=== PATIENT | female | born 1965 | race Caucasian/White ===

== ENCOUNTER 2024-03-18 15:17 | Emergency (ER) | payer MEDICAID, SELFPAY ==
[2024-03-18 15:18] VITALS: BMI 32.8
--- NOTE | 2024-03-18 15:36 | EKG_ITS ---
[facility] Test Date: 2024-03-18 Pat Name: VIC GARCIA Department: Room: - Gender: Female New Patient Escort: : 1965 Requested By: ED Temporary Provider Order Number: [id number] Reading MD: ED Temporary Provider Measurements Intervals [place] Rate: 105 P: 59 DE: 168 QRS: -32 QRSD: 76 T: 66 QT: 327 QTc: 433 Interpretive Statements SINUS TACHYCARDIA MARKED LEFT AXIS DEVIATION [QRS AXIS < -30] LOW QRS VOLTAGE IN PRECORDIAL LEADS [QRS DEFLECTION < 1.0 mV IN CHEST LEADS] POSSIBLE ANTERIOR MYOCARDIAL INFARCTION , PROBABLY OLD [30 ms Q WAVE IN V3/V4, OR R < 0.2 mV IN V4] Compared to ECG 07/31/2022 12:08:12 Left-axis deviation now present Low QRS voltage now present Myocardial infarct finding now present Sinus rhythm no longer present /store/S0/[id number].pdf
[2024-03-18 15:46] VITALS: BP 161/85; PULSE 116; RESP 22; TEMP 36.8; O2SAT 100
--- NOTE | 2024-03-18 18:17 | PD.EDRME ---
Rapid Medical Screening Exam RME Arrival date/time: 03/18/24 15:17 58 year old female present to ED for c/o back/chest pain I have greeted and performed a focused initial assessment of this patient. A comprehensive ED assessment and evaluation of the patient, analysis of all test results, and completion of the medical decision making process will be conducted by additional ED providers. Chief Complaint: Back Pain/Injury Vital signs: Vital Signs Temperature 98.3 F 03/18/24 15:46 Pulse Rate 116 H 03/18/24 15:46 Respiratory Rate 22 H 03/18/24 15:46 Blood Pressure 161/85 H 03/18/24 15:46 Pulse Oximetry (%) 100 03/18/24 15:46 Oxygen Delivery Method Room Air 03/18/24 15:46
--- NOTE | 2024-03-18 18:18 | XR_ITS ---
Examination: PA lateral chest 2 views Technique: Upright PA lateral chest 2 views Exam date and time: March 18, 2024 1849 hrs. Indications: Chest pain back pain beginning 2 days ago. Findings: Mild prominence left ventricle No pneumonia or pulmonary edema Increased AP dimension chest Orthopedic screw right scapula Impression: No active disease
[2024-03-18 18:47] LABS: Basophils # (Auto) 0.1 Thou/mm3 (0.0-0.2); Basophils % (Auto) 1 % (0-2.5); Eosinophils # (Auto) 0.3 Thou/mm3 (0.0-0.5); Eosinophils % (Auto) 3 % (0-10); Hematocrit 40.5 % (36.0-46.0); Hemoglobin 13.2 g/dL (12.0-16.0); Immature Granulocytes % (Auto) 0 % (0-0); Immature Granulocytes Auto 0.04 Thou/mm3 (0.00-0.00); Lymphocytes # (Auto) 3.5 Thou/mm3 (1.0-4.8); Lymphocytes % (Auto) 32 % (10-50); Mean Corpuscular HGB Conc 32.6 g/dl (31.0-37.0); Mean Corpuscular Hemoglobin 28.9 pg (25.0-35.0); Mean Corpuscular Volume 89 fL (80-100); Monocytes # (Auto) 0.6 Thou/mm3 (0.0-0.8); Monocytes % (Auto) 6 % (0-12); Neutrophils # (Auto) 6.4 Thou/mm3 (1.8-7.7); Neutrophils % (Auto) 59 % (37-80); Nucleated Red Blood Cell % 0 /100 WBC (0); Platelet Count 273 Thou/mm3 (140-440); RDW Standard Deviation 41.9 fL (36.4-46.3); Red Blood Count 4.56 Miln/mm3 (4.00-5.20)
[2024-03-18 19:09] LABS: D-Dimer 752 ng/mL (<600)
[2024-03-18 19:13] LABS: Alanine Aminotransferase 19 U/L (10-49); Albumin, Serum 4.7 gm/dL (3.5-5.0); Albumin/Globulin Ratio 1.6 (1.2-2.2); Alkaline Phosphatase 124 U/L (46-116); Anion Gap 8 (7-16); BUN/Creatinine Ratio 17 Ratio (12-20); Bilirubin,Total 0.5 mg/dL (0.3-1.2); Blood Urea Nitrogen 19 mg/dL (9-23); Calcium 10.2 mg/dL (8.3-10.6); Calcium (Corrected) 10.2 mg/dL (8.5-10.1); Carbon Dioxide 28.1 mMol/L (20.0-31.0); Chloride 101 mMol/L (98-107); Creatinine (Component) 1.1 mg/dL (0.6-1.3); Estimated Creatinine Clearance 56.5 mL/min (>60); Glucose 155 mg/dL (74-106); Lipase 54 U/L (12-53); Osmolality,Calculated 279 (275-295); Potassium 4.2 mMol/L (3.4-5.1); Sodium 137 mMol/L (136-145); Total Protein 7.7 gm/dL (5.7-8.2); Troponin I < 0.002 ng/mL (0.0-0.045); eGFR 58 See Note
[2024-03-18 19:21] LABS: Aspartate Amino Transferase 14 U/L (0-34)
[2024-03-18 19:53] VITALS: BP 156/86; PULSE 88; RESP 18; TEMP 36.6; O2SAT 96
--- NOTE | 2024-03-18 21:23 | XR_ITS ---
Examination: CTA chest with intravenous contrast 2-D reconstructions 3-D reconstructions, vascular Date and time of exam: March 18, 2024 1127 hrs. Indications: Back pain chest pain shortness of breath elevated d-dimer today CTDI: vol (mGy) 13.3 DLP: (mGycm) 519 Technique: Multiple axial sections of the thorax have been obtained. 3 mm slice thickness, from below the hemidiaphragms to above the apices of the lungs. Mediastinal and lung density settings have been obtained. 2-D sagittal and coronal reconstructions. 3-D angiographic renderings, 3-D volume renderings, 3D post processing, vascular maximum intensity projections obtained. Contrast administered is 100 cc Isovue-370. Low dose protocols were performed. One or more of the following dose reduction techniques were used; automated exposure control, adjustment of the mA and/or KV according to patient size, use of iterative reconstruction technique. Findings: No thoracic aortic aneurysmal dilatation Pulmonary artery segments are not enlarged No pulmonary artery emboli No paratracheal tracheobronchial or bronchopulmonary adenopathy No pneumonia or pulmonary edema or pleural disease Minor atelectasis left lower lobe No focal liver or splenic lesion Absent gallbladder No pancreatic mass No hydronephrosis Impression: Negative for pulmonary artery emboli
[2024-03-18 22:45] VITALS: BP 152/123; PULSE 88; RESP 14; O2SAT 99
[2024-03-19 00:16] VITALS: BP 133/84; PULSE 85; RESP 15; TEMP 36.6; O2SAT 99
[2024-03-19 01:20] VITALS: BP 122/70; PULSE 84; RESP 17; O2SAT 98
--- NOTE | 2024-03-19 02:43 | EDNOTE_ITS ---
ED Back Injury Pain RME/HPI General Chief Complaint: Back Pain/Injury Stated Complaint: BACK PAIN RADITING TO SHOULDER AND CHEST Time Seen by Provider: 03/19/24 02:40 Source: patient and family Arrival date/time: 03/18/24 15:17 Mode of arrival: ambulatory Limitations: other RME / HPI RME / HPI Narrative: 03/18/24 15:17 58 year old female present to ED for c/o back/chest pain I have greeted and performed a focused initial assessment of this patient. A comprehensive ED assessment and evaluation of the patient, analysis of all test results, and completion of the medical decision making process will be conducted by additional ED providers. --- DR. FRYE MAIN ED EVALUATION: 58-year-old female who presents to the emergency department via private auto for complaints of back pain radiating to her shoulder and chest. She notes onset began about 30 hours ago. She has taken Tylenol and [place] for the pain without relief. Related Data Home Medications ?Medication ?Instructions ?Recorded ?Confirmed atorvastatin 80 mg tablet 80 mg PO QDAY 10/07/23 10/07/23 baclofen 20 mg tablet 20 mg PO BID PRN Muscle Spasm 10/07/23 10/07/23 empagliflozin 25 mg tablet 25 mg PO QAM 10/07/23 10/07/23 (Jardiance) ergocalciferol (vitamin D2) 1,250 1,250 mcg PO QWEEK 10/07/23 10/07/23 mcg (50,000 unit) capsule (Vitamin D2) hydroxyzine HCl 10 mg tablet 10 mg PO HS 10/07/23 10/07/23 insulin glargine 100 unit/mL (3 40 unit subcut QAM 10/07/23 10/07/23 mL) subcutaneous pen (Basaglar KwikPen U-100 Insulin) lisinopril 10 mg tablet 10 mg PO QDAY 10/07/23 10/07/23 nortriptyline 10 mg capsule 10 mg PO HS 10/07/23 10/07/23 sitagliptin phosphate 50 1 tab PO BID 10/07/23 10/07/23 mg-metformin 1,000 mg tablet (Janumet) vitamin B complex-vitamin C-folic 1 tab PO QDAY 10/07/23 10/07/23 acid 0.8 mg tablet (Seema-Erasmo) Allergies Allergy/AdvReac Type Severity Reaction Status Date / Time No Known Allergies Allergy Verified 03/18/24 15:17 Review of Systems Review of Systems Systems Reviewed: All systems reviewed, normal except as documented Past Medical History Past Medical History NEUROLOGIC: Negative Neurological Disorders or Seizures CARDIAC: Positive Hypercholesterolemia and Hypertension; Negative Cardiac Disorders or Congestive Heart Failure RESPIRATORY: Positive Bronchitis; Negative Chronic Obstructive Pulmonary Disease (COPD) or Asthma GASTROINTESTINAL: Positive Gastrointestinal Disorders (fatty liver) and Obesity; Negative Hepatitis GENITOURINARY: Negative Genitourinary Disorders or Renal Disease REPRODUCTIVE: Positive Previous Pregnancies MUSCULOSKELETAL: Positive Musculoskeletal Disorders, Arthritis and Carpal Tunnel Syndrome (bilateral, trigger finger release) ENT: Positive Cataracts (right) ENDOCRINE: Positive Endocrine Disorders and Diabetes Mellitus Type 2; Negative Diabetes Mellitus Type 1 HEMATOLOGIC: Negative Blood Disorders or Sickle Cell Disease PSYCHO/SOCIAL: Positive Depression OTHER HISTORY: Positive Hospitalization (surgery, infection), Shingles and Chicken Pox; Negative Autoimmune Disease, Blood Transfusions, Anesthesia Reactions or Cancer Family History FAMILY HISTORY: Positive Family Cardiac Disorders, Family Cancer and Family Surgery; Negative Family Psychiatric Problems, Family Respiratory Disorders, Family Gastrointestinal Problems or Family Anesthesia Reaction Surgical History SURGICAL: Negative Cardiac Surgery or Ear Surgery OTHER SURGICAL HX: Appendectomy, cholecystectomy, bilateral carpal tunnel release, right shoulder surgery and eye surgery Social History SMOKING STATUS: Never smoker SECOND HAND EXPOSURE: No SUBSTANCE USE: does not use ED Exam Narrative Physical exam: There is a 2x2cm well-circumscribed mass minimally tender area on the anterior aspect to left side of axillary. No overlying erythema. Mobile. General Limitations: Present other General appearance: Present alert and in no apparent distress Head Head exam: Present atraumatic, normocephalic and normal inspection Eye Eye exam: Present normal appearance, PERRL and EOMI ENT ENT exam: Present normal exam, normal oropharynx, TM's normal bilaterally and normal external ear exam Neck Neck exam: Present normal inspection and full ROM Chest Chest inspection: Present normal inspection and symmetric chest wall rise Respiratory Respiratory exam: Present normal lung sounds bilaterally Cardiovascular Cardiovascular exam: Present regular rate, normal rhythm and normal heart sounds Abdominal Exam Abdominal exam: Present normal bowel sounds Extremities Exam Extremities exam: Present normal inspection and full ROM Back Exam Back exam: Present normal inspection and full ROM Neurological Exam Neurological exam: Present alert, oriented X3 and CN II-XII intact Psychiatric Psychiatric exam: Present normal affect and normal mood; Absent depressed Skin Skin exam: Present warm, dry, intact and normal color Course Course Course Narrative: CXR is ordered to aid in determining etiology of chest pain. Quality Measures none Orders Category Date Time Status CT Screening NOW Care 03/18/24 21:23 Completed EKG (ED ONLY) *Do not use* NOW Care 03/18/24 15:[address] angio chest Stat Exams 03/18/24 21:23 Completed EKG (ED Only) Stat Exams 03/18/24 15:36 Draft XR chest 2V Stat Exams 03/18/24 18:18 Completed CBC Stat Lab 03/18/24 18:30 Completed CMP [Comprehensive Metabolic Panel] Stat Lab 03/18/24 18:30 Completed D-Dimer Stat Lab 03/18/24 18:30 Completed Lipase Stat Lab 03/18/24 18:30 Completed Troponin I Stat Lab 03/18/24 18:30 Completed Ketorolac Inj [Toradol Inj] Med 03/19/24 02:50 Discontinued 30 mg IM X1 ONE Vital Signs Vital signs: Vital Signs Temperature 98.3 F 03/18/24 15:46 Pulse Rate 116 H 03/18/24 15:46 Respiratory Rate 22 H 03/18/24 15:46 Blood Pressure 161/85 H 03/18/24 15:46 Pulse Oximetry (%) 100 03/18/24 15:46 Oxygen Delivery Method Room Air 03/18/24 15:46 Back Pain / Injury MDM Narrative MDM Narrative:: ? Scribe Attestation: ILouie am scribing for and in the presence of Dr. Banks. Provider Notation: Although this document has been carefully reviewed, there may still be some phonetic and other typographical errors. These errors are purely grammatical due to imperfections in the software program and should not be construed in any way to compromise the substance of the patient's medical care d uring this visit. Patient data External records reviewed:: [facility] previous records Clinical information provided by:: patient Social determinants that could affect healthcare access:: none Patient has the following chronic illnesses:: HLD, HTN, bronchitis, fatty liver, arthritis, carpal tunnel syndrome, right cataract, DM2, depression, peripheral neuropathy How is presenting disease/condition affected by chronic disease/condition?: uneffected by Evaluation data The following diagnostics were reviewed and interpreted by me:: lab results, radiology exam(s) and EKG tracing(s) Lab and/or radiology exams considered but not ordered:: None Interpretation Summary: I personally reviewed the radiology data and agree with the radiologist's interpretation. Examination: PA lateral chest 2 views Exam date and time: March 18, 2024 1849 hrs. Indications: Chest pain back pain beginning 2 days ago. Findings: Mild prominence left ventricle No pneumonia or pulmonary edema Increased AP dimension chest Orthopedic screw right scapula Impression: No active disease Dictated By: Ken Serna MD Examination: CTA chest with intravenous contrast Date and time of exam: March 18, 2024 1127 hrs. Indications: Back pain chest pain shortness of breath elevated d-dimer today Findings: No thoracic aortic aneurysmal dilatation Pulmonary artery segments are not enlarged No pulmonary artery emboli No paratracheal tracheobronchial or bronchopulmonary adenopathy No pneumonia or pulmonary edema or pleural disease Minor atelectasis left lower lobe No focal liver or splenic lesion Absent gallbladder No pancreatic mass No hydronephrosis Impression: Negative for pulmonary artery emboli Dictated By: Ken Serna MD Medications / Prescriptions Medications or Prescriptions considered but not ordered:: None Medication administrations:: Medication Administration History Discontinued Medications Ketorolac Tromethamine (Ketorolac Inj 60 Mg/2 Ml Vial) 30 mg IM X1 ONE Stop: 03/19/24 02:51 Last Admin: 03/19/24 02:56 Dose: 30 mg Documented By: GB As above, if any Consultations Consultation(s) initiated? (list below): No Diagnosis Differential diagnosis back pain/injury: other (Breast cancer, musculoskeletal, lipoma, soft tissue swelling, PE) Most likely diagnosis given after review of the tests above:: See clinical impression below Admission Indicated Admission indicated?: not indicated Admission Request Was there a request for admission?: No Disposition Plan Disposition Plan: Discharge Discharge Attestation Discharge Attestation: The patient and all family members were given an opportunity to ask questions and understood the discharge instructions. Discharge instructions specifically effects, indications for sooner follow up or return to the emergency department, and the expected course of current diagnosis. Patient condition: Stable Critical Care Time Critical Care Time Critical Care Time: Yes Total Critical Care Time (min.): 60 Attestation: The high probability of sudden, clinically significant deterioration in the patient?s condition required the highest level of my preparedness to intervene urgently. The services I provided to this patient were to treat and/or prevent clinically significant deterioration. Services included the following: chart data review, reviewing nursing notes and/or old charts, documentation time, edi consultant collaboration regarding findings and treatment options, medication orders and management, direct patient care, vital sign assessments and ordering, interpreting and reviewing diagnostic studies and lab tests. Aggregate critical care time includes only time during which I was engaged in wo rk directly related to the patient?s care, as described above, whether at bedside or elsewhere in the Emergency Department. It did not include time spent performing other reported procedures or the services of residents, students, nurses or physician assistants. Discharge Plan Plan Patient Disposition: HOME (Self Care) Patient condition on transfer: Stable Prescriptions/Referrals Prescriptions/Med Rec: No Action atorvastatin 80 mg Tablet 80 mg PO QDAY baclofen 20 mg Tablet 20 mg PO BID PRN (Reason: Muscle Spasm) nortriptyline 10 mg Capsule 10 mg PO HS lisinopril 10 mg Tablet 10 mg PO QDAY Seema-Erasmo 0.8 mg Tablet 1 tab PO QDAY ergocalciferol (vitamin D2) [Vitamin D2] 1,250 mcg (50,000 unit) Capsule 1,250 mcg PO QWEEK hydroxyzine HCl 10 mg Tablet 10 mg PO HS Janumet 50-1,000 mg Tablet 1 tab PO BID insulin glargine [Basaglar KwikPen U-100 Insulin] 100 unit/mL (3 mL) Insulin Pen 40 unit SUBCUT QAM Jardiance 25 mg Tablet 25 mg PO QAM Referrals: Enrico Buckner MD [Primary Care Provider] - In 1 week Problem List Clinical Impression: Muscle pain Patient/Caregiver Discharge Instructions Education Materials: Measuring Your Pain Additional Instructions: Please follow through in getting your mammogram and follow-up with your primary care physician as needed. Today you do not have cancer or tumor or any life- threatening abnormality. You can take [id number] Tylenol 650 mg 3 times a day as needed for the next 2 to 3 days. Return for worsening symptoms, or any other concerns. Print Language: Citizen Of [place] Stand Alone Forms: Marry Award Info., Patient Portal Info Letter
--- NOTE | 2024-03-19 02:49 | PC.NURSE ---
MD Greer at bedside.
[2024-03-19] MEDS: KETOROLAC INJ 60 MG/2 ML VIAL 30 MG IM (02:56)
[2024-03-19 03:16] VITALS: PULSE 89; RESP 18; O2SAT 99
== END 2024-03-19 03:17 | disposition home or self-care (01) ==
PROVIDERS: Physician Assistant; Emergency Provider Emergency Medicine; PCP Family Medicine
DX: M54.9 Dorsalgia, unspecified (principal); R07.9 Chest pain, unspecified
CPT/HCPCS: 36415; 71046; 71275; 80053; 83690; 84484; 85025; 85379; 93005; 96372; 99285; A4649; J1885; Q9967

== ENCOUNTER → 2024-03-30 | Outpatient (CLI) | payer MEDICAID, SELFPAY ==
--- NOTE | 2024-03-30 11:15 | XR_ITS ---
Examination: Breast ultrasound, unilateral, left complete Date and time of exam: March 30, 2024 at 1059 hours INDICATIONS: Palpable lump in the left axilla on examination by provider 6 months ago Technique: Real-time page scale ultrasonographic imaging performed left breast including all 4 quadrants as well as nipple retroareolar and axillary region. Findings: No cystic or solid mass Hyperechoic mass in the left axilla 4.1 x 1.6 x 3.5 cm, probably benign lipoma IMPRESSION: BI-RADS Category 3: Probably benign findings One additional 6 month left breast axillary sonography follow-up is needed to document stability of left axillary mass described above
--- NOTE | 2024-03-30 11:45 | XR_ITS ---
Examination: Diagnostic digital mammography, unilateral, left Computer aided detection 3-D breast Tomosynthesis, unilateral Date and time of exam: March 30, 2024 at 1119 hours INDICATIONS: Patient states palpable lump in the left axilla noticed beginning 6 months ago Technique: Nonmagnified MLO, CC views of the LEFT breast have been obtained, reconstructed from 3-D Tomosynthesis images. R2 computer aided detection program utilized for evaluation of suspicious masses and/or abnormal calcifications. 3-D Tomosynthesis images obtained. Findings: Scattered areas of fibroglandular density Benign calcifications. No suspicious masses Impression: BI-RADS category 2: Benign findings Recommend 6 month bilateral mammography follow-up Please see the left breast sonogram report today with recommendation 6 month follow-up left breast sonography
== END | disposition home or self-care (01) ==
PROVIDERS: Referring Provider Internal Medicine; Visit Provider Internal Medicine
DX: R92.322 Mammographic fibroglandular density, left breast (principal); R92.1 Mammographic calcification found on diagnostic imaging of breast; N63.32 Unspecified lump in axillary tail of the left breast
CPT/HCPCS: 76641; 77061; 77065; G0279

== ENCOUNTER → 2024-07-31 | Outpatient (CLI) | payer MEDICAID, SELFPAY ==
--- NOTE | 2024-07-31 14:53 | XR_ITS ---
Examination: AP bilateral knees single view TECHNIQUE: AP standing bilateral knee single view Date and time: July 31, 2024 1458 hours INDICATIONS: Bilateral knee pain beginning one year ago. FINDINGS: Moderate osteopenia. Moderate narrowing medial joint spaces bilaterally No fracture or dislocation IMPRESSION: Moderate narrowing medial joint spaces
== END | disposition home or self-care (01) ==
PROVIDERS: PCP Internal Medicine; Referring Provider Internal Medicine; Visit Provider Internal Medicine
DX: M25.862 Other specified joint disorders, left knee (principal); M25.861 Other specified joint disorders, right knee
CPT/HCPCS: 73565

== ENCOUNTER 2024-11-11 | Emergency (ER) | payer MEDICAID, SELFPAY ==
[2024-11-11 00:01] VITALS: BMI 32.8
[2024-11-11 00:14] VITALS: BP 147/87; PULSE 80; RESP 18; TEMP 36.6; O2SAT 99
--- NOTE | 2024-11-11 00:57 | PD.EDWOUND ---
ED Wound/Laceration-RME/HPI General Chief Complaint: Wound/Laceration Stated Complaint: CUT ON LEFT FINGER Time Seen by Provider: 11/11/24 00:56 Arrival date/time: 11/11/24 00:00 58F with history of DM and HTN presents to ED with L index finger lac after she accidentally cut herself with an aluminum can trying to kill a spider. Patient has not had a tetanus shot in the past 5 years. Related Data Home Medications ?Medication ?Instructions ?Recorded ?Confirmed atorvastatin 80 mg tablet 80 mg PO QDAY 10/07/23 10/07/23 baclofen 20 mg tablet 20 mg PO BID PRN Muscle Spasm 10/07/23 10/07/23 empagliflozin 25 mg tablet 25 mg PO QAM 10/07/23 10/07/23 (Jardiance) ergocalciferol (vitamin D2) 1,250 1,250 mcg PO QWEEK 10/07/23 10/07/23 mcg (50,000 unit) capsule (Vitamin D2) hydroxyzine HCl 10 mg tablet 10 mg PO HS 10/07/23 10/07/23 insulin glargine 100 unit/mL (3 40 unit subcut QAM 10/07/23 10/07/23 mL) subcutaneous pen (Basaglar KwikPen U-100 Insulin) lisinopril 10 mg tablet 10 mg PO QDAY 10/07/23 10/07/23 nortriptyline 10 mg capsule 10 mg PO HS 10/07/23 10/07/23 sitagliptin phosphate 50 1 tab PO BID 10/07/23 10/07/23 mg-metformin 1,000 mg tablet (Janumet) vitamin B complex-vitamin C-folic 1 tab PO QDAY 10/07/23 10/07/23 acid 0.8 mg tablet (Seema-Erasmo) Allergies Allergy/AdvReac Type Severity Reaction Status Date / Time No Known Allergies Allergy Verified 03/18/24 15:17 Review of Systems Review of Systems Systems Reviewed: All systems reviewed, normal except as documented Constitutional Constitutional: Reports system reviewed and no additional complaints, except as documented, Denies fever(s) and Denies headache(s) ENT Ears, Nose, Mouth, and Throat: Denies disequilibrium and Denies headache(s) Cardiovascular Cardiovascular: Reports system reviewed and no additional complaints, except as documented, Denies chest pain and Denies dyspnea Respiratory Respiratory: Reports system reviewed and no additional complaints, except as documented, Denies cough and Denies dyspnea Gastrointestinal Gastrointestinal: Reports system reviewed and no additional complaints, except as documented, Denies abdominal pain, Denies nausea and Denies vomiting Integumentary/Breasts Skin/Breast: Reports as per HPI and Reports skin pain Neurologic Neurologic: Reports system reviewed and no additional complaints, except as documented, Denies confusion, Denies disequilibrium and Denies headache(s) Psychiatric Psychiatric: Denies confusion Past Medical History Past Medical History NEUROLOGIC: Negative Neurological Disorders or Seizures CARDIAC: Positive Hypercholesterolemia and Hypertension; Negative Cardiac Disorders or Congestive Heart Failure RESPIRATORY: Positive Bronchitis; Negative Chronic Obstructive Pulmonary Disease (COPD) or Asthma GASTROINTESTINAL: Positive Gastrointestinal Disorders (fatty liver) and Obesity; Negative Hepatitis GENITOURINARY: Negative Genitourinary Disorders or Renal Disease REPRODUCTIVE: Positive Previous Pregnancies MUSCULOSKELETAL: Positive Musculoskeletal Disorders, Arthritis and Carpal Tunnel Syndrome (bilateral, trigger finger release) ENT: Positive Cataracts (right) ENDOCRINE: Positive Endocrine Disorders and Diabetes Mellitus Type 2; Negative Diabetes Mellitus Type 1 HEMATOLOGIC: Negative Blood Disorders or Sickle Cell Disease PSYCHO/SOCIAL: Positive Depression OTHER HISTORY: Positive Hospitalization (surgery, infection), Shingles and Chicken Pox; Negative Autoimmune Disease, Blood Transfusions, Anesthesia Reactions or Cancer Family History FAMILY HISTORY: Positive Family Cardiac Disorders, Family Cancer and Family Surgery; Negative Family Psychiatric Problems, Family Respiratory Disorders, Family Gastrointestinal Problems or Family Anesthesia Reaction Surgical History SURGICAL: Negative Cardiac Surgery or Ear Surgery Social History SMOKING STATUS: Never smoker SECOND HAND EXPOSURE: No SUBSTANCE USE: does not use ED Exam Extremities Exam Extremities exam: Present normal inspection Expanded Upper Extremity Exam Hand exam: Present full ROM and laceration (1 cm L index finger) Course Quality Measures none Orders Category Date Time Status Set Up Suture Tray STAT Care 11/11/24 00:56 Active Wound Care NOW Care 11/11/24 00:56 Active TET,DIP/PERT AC (Adult)-Tdap [Boostrix Adult (Tdap) Med 11/11/24 00:56 Discontinued Vacc] 0.5 ml IMI .ONCE ONE Vital Signs Vital signs: Vital Signs Temperature 98 F 11/11/24 00:14 Pulse Rate 80 11/11/24 00:14 Respiratory Rate 18 11/11/24 00:14 Blood Pressure 147/87 H 11/11/24 00:14 Pulse Oximetry (%) 99 11/11/24 00:14 Oxygen Delivery Method Room Air 11/11/24 00:14 O2 at 99% on RA and WNLs Wound / Laceration MDM Narrative MDM Narrative:: 58F with history of DM and HTN presents to ED with L index finger lac after she accidentally cut herself with an aluminum can trying to kill a spider. Patient has not had a tetanus shot in the past 5 years. Physical exam reveals 1 cm lac on L index finger. ROM intact. Patient is afebrile, calm, and alert. Wound cleaned/irrigated and closed with 3 stitches. Given recreational counselor to have them removed in about 10-14 days. Tdap given. Patient data External records reviewed:: [facility] previous records Clinical information provided by:: patient Social determinants that could affect healthcare access:: none Patient has the following chronic illnesses:: DM How is presenting disease/condition affected by chronic disease/condition?: exacerbated by Evaluation data The following diagnostics were reviewed and interpreted by me:: other (specify) (none) Lab and/or radiology exams considered but not ordered:: not ordered Interpretation Summary: n/a Medications / Prescriptions Medications or Prescriptions considered but not ordered:: ordered Medication administrations:: Medication Administration History Discontinued Medications Diphtheria/Tetanus/Acell Pertussis (Diphth,Pertuss(Acell),Tet Vac 0.5 Ml Syr- Adult) 0.5 ml IMi .ONCE ONE Stop: 11/11/24 00:57 above Consultations Consultation(s) initiated? (list below): No Diagnosis Wound Differential Diagnosis: laceration, abrasion and avulsion of skin Most likely diagnosis given after review of the tests above:: laceration Admission Indicated Admission indicated?: not indicated Admission Request Was there a request for admission?: No Disposition Plan Disposition Plan: Discharge Discharge Attestation Discharge Attestation: The patient and all family members were given an opportunity to ask questions and understood the discharge instructions. Discharge instructions specifically effects, indications for sooner follow up or return to the emergency department, and the expected course of current diagnosis. Patient condition: Stable Discharge Plan Plan Patient Disposition: HOME (Self Care) Discharge Disposition comment: Stable Prescriptions/Referrals Prescriptions/Med Rec: No Action atorvastatin 80 mg Tablet 80 mg PO QDAY baclofen 20 mg Tablet 20 mg PO BID PRN (Reason: Muscle Spasm) nortriptyline 10 mg Capsule 10 mg PO HS lisinopril 10 mg Tablet 10 mg PO QDAY Seema-Erasmo 0.8 mg Tablet 1 tab PO QDAY ergocalciferol (vitamin D2) [Vitamin D2] 1,250 mcg (50,000 unit) Capsule 1,250 mcg PO QWEEK hydroxyzine HCl 10 mg Tablet 10 mg PO HS Janumet 50-1,000 mg Tablet 1 tab PO BID insulin glargine [Basaglar KwikPen U-100 Insulin] 100 unit/mL (3 mL) Insulin Pen 40 unit SUBCUT QAM Jardiance 25 mg Tablet 25 mg PO QAM Problem List Clinical Impression: Laceration Patient/Caregiver Discharge Instructions Education Materials: ED Laceration, Hand: All Closures Additional Instructions: Please follow-up with PCP within 24-48 hours and return immediately if symptoms worsen. Have stitches removed in about 10-14 days. Print Language: Bahraini Stand Alone Forms: Patient Portal Info Letter PA/ALMAS Supervising Physician AURORA/ALMAS Supervising Physician: Dr. Turner
[2024-11-11] MEDS: DIPHTH,PERTUSS(ACELL),TET VAC 0.5 ML SYR- ADULT IMi (01:14)
--- NOTE | 2024-11-11 01:34 | PC.NURSE ---
WOUND CLEANEDAND DRESSING APPLIED. PT INSTRUCTED ON CARE OF WOIUND.
== END 2024-11-11 01:35 | disposition home or self-care (01) ==
LOC: SERX 01:36
PROVIDERS: Emergency Provider Emergency Medicine
DX: S61.211A Laceration without foreign body of left index finger without damage to nail, initial encounter (principal); W26.8XXA Contact with other sharp object(s), not elsewhere classified, initial encounter; Y93.89 Activity, other specified; Z23 Encounter for immunization
CPT/HCPCS: 12001; 90471; 90715; 99284

== ENCOUNTER → 2024-12-04 | Outpatient (CLI) | payer MEDICAID, SELFPAY ==
--- NOTE | 2024-12-04 07:00 | XR_ITS ---
Exam: MRI knee without contrast, left Date and time of exam: December 04, 2024 0705 hrs. Indications: Anterior posterior knee pain instability in the knee beginning April 2024 Technique: Multiple axial, coronal, and sagittal sections on the knee have been obtained. T2-Weighted sagittal, fat-suppressed images, TR 3,500, TE 62, T2 weighted coronal fat-saturated images, TR 3,500, TE 62 Proton density sagittal sections, TR 1800, TE 31. T-1 weighted coronal images, TR 524, TE 13.0 Findings: Medial meniscus anterior horn intact. Medial meniscus, body intact. Posterior horn medial meniscus horizontal linear tear communicating superior articular surface. Lateral meniscus anterior horn is intact Lateral meniscus, body is intact Posterior horn lateral meniscus is intact Anterior cruciate ligament mild sprain Posterior cruciate ligament appears intact. Knee effusion is moderate. Quadriceps and patellar tendons appear intact. There is no evidence of tendinosis. Inflammatory change or fracture of Hoffa's fat pad is not seen. Medial patellar facet demonstrates severe thinning. Lateral patellar facet cartilage demonstrates moderate thinning. Trochlear cartilage demonstrates moderate thinning. Marrow signal adequate. Medial collateral ligament appears intact. No meniscocapsular separation is seen. Illiotibial band and fibular collateral ligament are intact. Biceps femoris tendons appear intact. Medial femoral condylar articular cartilage demonstrates severe thinning. Lateral femoral condylar articular cartilage demonstratessevere thinning. Tibial plateau cartilage demonstrates severe thinning. Impression: Horizontal linear tear posterior horn medial meniscus Mild sprain anterior cruciate ligament Severe thinning cartilage medial lateral and patellofemoral joints
== END | disposition home or self-care (01) ==
LOC: SMRI 06:37
PROVIDERS: Referring Provider Orthopaedic Surgery; Visit Provider Orthopaedic Surgery
DX: S83.242A Other tear of medial meniscus, current injury, left knee, initial encounter (principal); S83.512A Sprain of anterior cruciate ligament of left knee, initial encounter; X58.XXXA Exposure to other specified factors, initial encounter; M25.862 Other specified joint disorders, left knee
CPT/HCPCS: 73721

== ENCOUNTER 2024-12-29 05:30 | Day surgery (SDC) | payer MEDICAID, SELFPAY ==
--- NOTE | 2024-12-28 11:37 | EKG_ITS ---
[facility], [place] Test Date: 2024-12-28 Pat Name: VIC GARCIA Department: Room: - Gender: Female Stock Controller: DIMPLE : 1965 Requested By: Bruce Calderon Order Number: [id number] Reading MD: Bruce Calderon Measurements Intervals [place] Rate: 78 P: 44 DC: 155 QRS: -1 QRSD: 76 T: 29 QT: 386 QTc: 441 Interpretive Statements SINUS RHYTHM Compared to ECG 03/18/2024 15:50:30 Sinus tachycardia no longer present Left-axis deviation no longer present Myocardial infarct finding no longer present /store/S0/[id number].pdf
[2024-12-28 11:44] VITALS: BMI 37.6
[2024-12-28 13:24] LABS: Basophils # (Auto) 0.1 Thou/mm3 (0.0-0.2); Basophils % (Auto) 1 % (0-2.5); Eosinophils # (Auto) 0.3 Thou/mm3 (0.0-0.5); Eosinophils % (Auto) 3 % (0-10); Hematocrit 38.1 % (36.0-46.0); Hemoglobin 12.0 g/dL (12.0-16.0); Immature Granulocytes Auto 0.02 Thou/mm3 (0.00-0.00); Lymphocytes # (Auto) 3.0 Thou/mm3 (1.0-4.8); Lymphocytes % (Auto) 32 % (10-50); Mean Corpuscular HGB Conc 31.5 g/dl (31.0-37.0); Mean Corpuscular Hemoglobin 28.8 pg (25.0-35.0); Mean Corpuscular Volume 91 fL (80-100); Monocytes # (Auto) 0.7 Thou/mm3 (0.0-0.8); Monocytes % (Auto) 7 % (0-12); Neutrophils # (Auto) 5.4 Thou/mm3 (1.8-7.7); Neutrophils % (Auto) 57 % (37-80); Nucleated Red Blood Cell # 0.00 Thou/mm3 (0.00-0.00); Nucleated Red Blood Cell % 0 /100 WBC (0); Platelet Count 331 Thou/mm3 (140-440); RDW Standard Deviation 46.3 fL (36.4-46.3); Red Blood Count 4.17 Miln/mm3 (4.00-5.20); White Blood Count 9.5 Thou/mm3 (3.6-11.0)
[2024-12-28 13:31] LABS: INR 0.9 (0.9-1.3); Partial Thromboplastin Time 26.5 Seconds (22.0-36.0); Prothrombin Time 10.1 Seconds (9.0-12.2)
[2024-12-28 13:34] LABS: Alanine Aminotransferase 23 U/L (10-49); Albumin, Serum 4.5 gm/dL (3.4-4.8); Albumin/Globulin Ratio 1.7 (1.2-2.2); Alkaline Phosphatase 67 U/L (46-116); Anion Gap 9 (7-16); Aspartate Amino Transferase 25 U/L (0-34); BUN/Creatinine Ratio 19 Ratio (12-20); Bilirubin,Total 0.3 mg/dL (0.3-1.2); Blood Urea Nitrogen 19 mg/dL (9-23); Calcium 9.3 mg/dL (8.3-10.6); Calcium (Corrected) 9.3 mg/dL (8.5-10.1); Carbon Dioxide 29.5 mMol/L (20.0-31.0); Chloride 105 mMol/L (98-107); Creatinine (Component) 1.0 mg/dL (0.6-1.3); Estimated Creatinine Clearance 58.8 mL/min (>60); Globulin 2.7 gm/dL (2.3-3.5); Glucose 98 mg/dL (74-106); Osmolality,Calculated 287 (275-295); Potassium 4.5 mMol/L (3.4-5.1); Sodium 143 mMol/L (136-145); Total Protein 7.2 gm/dL (5.7-8.2); eGFR > 60 See Note
[2024-12-29] VITALS (7 sets, daily range): BP systolic 100–146; BP diastolic 48–82; PULSE 85–93; RESP 12–16; TEMP 36.2–37.3; O2SAT 95–99; BMI 36.3
[2024-12-29] MEDS: RINGERS LACTATED 1000 ML 1,000 ML 20 ML IV (06:54)
--- NOTE | 2024-12-29 07:23 | SUR.PREOP ---
Patient expressed gratitude for prayer before their procedure.
--- NOTE | 2024-12-29 09:12 | PD.SUROPNT ---
Date of Procedure 12/29/24 Pre Op Diagnosis 1. Torn medial meniscus left knee joint 2 torn lateral meniscus 3 DJD 4. Synovitis with medial plica Post Op Diagnosis Same Procedure 1. Partial medial meniscectomy 2 partial lateral meniscectomy 3 chondroplasty 4 partial synovectomy including excision plica Findings Refer dictation Procedure Description The patient was given general endotracheal anesthesia. Once satisfactory anesthesia was achieved, tourniquet was placed on left upper thigh. Following that the part was thoroughly prepped and draped. After using Esmarch the tourniquet pressure was raised to 350 mmHg. A skin incision was made proximal to lateral tibial plateau and arthroscope was introduced in the usual fashion. Another a skin incision was made in suprapatellar pouch area and outlet was established. The findings were noted as below. In suprapatellar pouch area significant synovial tissue inflammation was present. Medial plica was present as well. The undersurface of patella showed grade 4 chondromalacia. The anterior femoral condyle showed grade 3 chondromalacia. Soft tissue impingement was present. The patellar tracking was checked and found to be good. The medial compartment showed grade 3 chondromalacia for medial tibial plateau and medial femoral condyle. The medial meniscus showed degeneration and tear of the body and anterior horn. Another skin incision was made proximal to medial tibial plateau and a probe was introduced and findings were confirmed. The anterior cruciate ligament was intact. The anterior drawer test was performed and found to be good. The lateral compartment showed intact lateral femoral condyle and tibial plateau. Lateral meniscus showed degeneration and tear of the body and anterior horn. Basket was introduced and torn part of the body of the medial meniscus was excised. A shaver was introduced and shaving of the anterior horn and body of medial meniscus was performed. Soft tissue impingement was shaved off. Chondroplasty of the medial femoral condyle and medial tibial plateau was performed. The shaving of the body and anterior horn of lateral meniscus was done. The chondroplasty of the patella and and anterior femoral condyle was performed. The soft tissue impingement was shaved off. A partial synovectomy including excision of plica was performed. Copious amount of irrigation was used to irrigate the knee joint. All the debris were removed. 3-0 Prolene was used to close the wound. About 20 mL of quarter percent Marcaine along with 10 mg of Duramorph was injected. Patient tolerated procedure well. Estimated blood loss was about 5 mL. Prognosis in this case is guarded. Because of significant chondromalacia there is a possibility that patient may continue having short and long-term pain. Patient may need additional surgical procedure if the pain persist and patient is fully aware of that.. Patient was taken to the recovery room in good condition. Anesthesia GETA Pathology / specimen None Estimated Blood Loss 1 Surgeon Bruce Smith MD Surgical Staff Operation Date: 12/29/24 08:00 Case Staff Anesthesiologist: Pasquale Abdi
--- NOTE | 2024-12-29 09:13 | SUR.PHASEI ---
0913: Pt. arrived with oral airway in place, vitals stable, breathing unlabored, no signs of distress, bilateral dorsalis pedis pulses strong and regular, cap refill to bilateral feet less than 3 seconds, dressing to left knee CDI, no active bleed noted, report received from MD Abdi and Woody MARTINEZ.
--- NOTE | 2024-12-29 09:44 | ESHP_ITS ---
RE: VIC GARCIA : 1965 DATE OF ADMISSION: 12/29/2024 Patient came to my office on 12/28/2024 for detailed preop examination in my office. HISTORY OF PRESENTING COMPLAINT: Patient presented to me with history of pain, swelling, clicking and locking of the left knee joint. This is going on for a long period of time. Intensity of pain is 7-8 out of 10. Unable to sleep. Unable to walk more than 1 or 2 blocks. Basically quality of life and activity daily living is affected. PAST MEDICAL HISTORY: Patient has history of diabetes mellitus and high blood pressure. No history of asthma, seizure, chest pain, myocardial infarction, bleeding disorder or stroke. PAST SURGICAL HISTORY: Right knee arthroscopy done in 09/2024. DRUG HISTORY: The patient is on; 1. Vitamin D2. 2. Atorvastatin. 3. Insulin. 4. Janumet. 5. Jardiance. 6. Lisinopril. 7. Nortriptyline. ALLERGIES: NIL KNOWN. FAMILY HISTORY AND SOCIAL HISTORY: Patient denies smoking drinking and is not working. PHYSICAL EXAMINATION: General: Normal built lady. Vital Signs: Pulse 88 per minute, blood pressure is 140/76. Neck: Soft supple no mass felt, trachea is centrally placed. Cardiovascular System: First and second heart sounds normal, no murmur heard. Respiratory System: Bilateral vesicular breath sounds, chest clear. Abdomen: Soft no mass felt, bowel sounds present. Breasts: Not indicated in this case. Patient is advised to see the family physician for regular examination. Left Knee Examination: 1+ swelling and 2+ tenderness. There is genu varum deformity. Active range of motion 0-115 degree of flexion. Crepitus present. Cecy's test is positive. Drawer test and Rico test were negative. Patient walks with limp. RADIOGRAPHIC STUDIES: MRI scan of the left knee joint revealed torn meniscus, DJD and synovitis with increased joint fluid. Since patient is symptomatic therefore left knee arthroscopy was discussed and advised. With the help of a knee model and distribution dispatcher, it was explained to her in detail. Risks with anesthesia includes but not limited to reaction to anesthetic agents, cardiac arrest and rarely it might be fatal. Risks with operation includes infection and if that happens patient may need further surgical procedure. Other risks include delayed healing, wound dehiscence, etc. Sometime rare complication happens and if that happens that has to be taken care of. If one finds grade 3 and/or grade 4 chondromalacia, there is possibility that patient may not improve pain godoy and if the pain is severe and persistent patient may be a candidate for further surgical procedure including total knee replacement and patient is fully aware of that. Patient is clear for surgical procedure and has had right knee surgery done in 09/2024. Surgery is booked for 12/29/2024. Appropriate lab work is done. DT: 09:21:16 TT: 09:42:00 Ref: [id number] - TID: [id number]
--- NOTE | 2024-12-29 10:13 | SUR.PHASEII ---
1013: Pt. AAOx4, vitals stable, breathing unlabored, no complaint of pain or nausea, dressing to left leg CDI, no active bleed noted, pt. tolerated sips of water well, pt. ambulated to wheelchair with steady gait and no assist, no complications. Gave discharge instructions to the pt. and her ride, both verbalized understanding and had no further questions. Pt. left with all personal belongings.
== END 2024-12-29 10:13 | disposition home or self-care (01) ==
PROVIDERS: Anesthesiology; PCP Family Medicine; Referring Provider Orthopaedic Surgery; Visit Provider Orthopaedic Surgery
PROC: (CPT 29870; principal; 2024-12-29 08:00)
DX: S83.242A Other tear of medial meniscus, current injury, left knee, initial encounter (principal); S83.289A Other tear of lateral meniscus, current injury, unspecified knee, initial encounter; X58.XXXA Exposure to other specified factors, initial encounter; Z01.810 Encounter for preprocedural cardiovascular examination; M17.12 Unilateral primary osteoarthritis, left knee; M65.862 Other synovitis and tenosynovitis, left lower leg; M67.52 Plica syndrome, left knee; M22.42 Chondromalacia patellae, left knee; M26.81 Anterior soft tissue impingement
CPT/HCPCS: 29880; 36415; 80053; 85025; 85610; 85730; 93005; A4217; A4649; J0131; J0690; J1100; J1885; J2250; J2371; J2405; J2704; J3010; J3490; J7120